=== PATIENT | male | born 1970 | race Caucasian/White ===

== ENCOUNTER 2017-01-14 21:12 | Emergency (ER) | payer MEDICAID ==
[~2017-01-14] VITALS: Ht 165.1 cm; Wt 81.6 kg
[2017-01-14 22:53] LABS: Basophils # (auto) 0 uL; Basophils % (auto) 0.2 % (0.0-2.0); CONDITION Y; DEFINITIVE SEE PRINTOUT; Eosinophils # (auto) 0.1 uL; Eosinophils % (auto) 1.2 % (0.0-7.0); Hematocrit 45.9 % (41.0-53.0); Hemoglobin 15.7 g/dL (13.5-17.5); Lymphocytes # (auto) 1.5 uL; Lymphocytes % (auto) 12.8 % (10.0-50.0); Mean Corpuscular Hemoglobin 31.3 pg (28.0-32.0); Mean Corpuscular Hgb Conc. 34.2 g/dL (32.0-36.0); Mean Corpuscular Volume 91.6 fL (80.0-100.0); Mean Platelet Volume 8.4 fL (7.4-10.4); Monocytes # (auto) 1.9 uL; Monocytes % (auto) 15.6 % (0.0-12.0); Neutrophils # (auto) 8.4 uL; Neutrophils % (auto) 70.2 % (37.0-80.0); Platelet Count (auto) 276 10^3/uL (140-450); Red Cell Distribution Width 12.8 % (11.6-16.0); SUSPECT SEE PRINTOUT; White Blood Cell 11.9 10^3/uL (4.4-10.8)
[2017-01-14 22:59] LABS: Urine Blood 1+ /uL (Negative); Urine Glucose Normal (Normal); Urine Ketone Negative (Negative); Urine Mucus FEW (None Seen); Urine Nitrite POSITIVE (Negative); Urine RBC 8 /hpf (0 - 3); Urine Squamous Epithelial Cell FEW /hpf (<5); Urine WBC Clumps PRESENT /hpf (None Seen)
[2017-01-14 23:00] LABS: Albumin 3.1 g/dL (3.4-5.0); Calcium 8.4 mg/dL (8.5-10.1); Potassium 4.5 mmol/L (3.5-5.1)
[2017-01-14 23:00] LABS: Urine Color Orange (Yellow)
[2017-01-14 23:03] LABS: BUN/Creatinine Ratio 8.5
[2017-01-14 23:06] LABS: Bilirubin, Total 0.9 mg/dL (0.2-1.0); Total Protein 7.2 g/dL (6.4-8.2)
[2017-01-14 23:06] LABS: Urine Bilirubin 2+ (Negative)
[2017-01-14 23:26] LABS: Platelet Estimate Adequate
[2017-01-15] MEDS ORDERED: KETOROLAC TROMETH 30 MG/ML 1ML VIAL IV ONE
[2017-01-15] MEDS ORDERED: SODIUM CHLORIDE 0.9% 1,000 ML IV ONE
[2017-01-15] MEDS ORDERED: cefTRIAXone 1GM/50ML D5W 50 ML IV ONE
[2017-01-15 02:00] VITALS: BP 140/91
== END 2017-01-15 02:10 | disposition home or self-care (01) ==
LOC: ER 21:19
DX: N39.0 Urinary tract infection, site not specified (principal); F17.210 Nicotine dependence, cigarettes, uncomplicated; F15.10 Other stimulant abuse, uncomplicated; I10 Essential (primary) hypertension
CPT/HCPCS: 36415; 74176; 80053; 81001; 85025; 96365; 96375; 99285; J0696; J1885; J7030

== ENCOUNTER 2018-11-07 21:30 | Emergency (ER) | payer MEDICAID ==
[~2018-11-07] VITALS: Ht 165.1 cm; Wt 81.6 kg
[2018-11-07] MEDS ORDERED: cloNIDine HCL 0.1 MG TAB PO ONE ×2 (22:00→23:45)
[2018-11-07] MEDS ORDERED: TETANUS-DIPTH-ACEL PERTUSSIS 0.5ML SYRG IM ONE (23:30)
[2018-11-07] MEDS ORDERED: IBUPROFEN 800 MG TAB PO ONE (23:45)
[2018-11-07 23:57] VITALS: BP 139/95
== END 2018-11-08 00:09 | disposition home or self-care (01) ==
LOC: ER 21:32
DX: T20.26XA Burn of second degree of forehead and cheek, initial encounter (principal); T31.0 Burns involving less than 10% of body surface; I16.0 Hypertensive urgency; T59.891A Toxic effect of other specified gases, fumes and vapors, accidental (unintentional), initial encounter; R51 Headache; F17.210 Nicotine dependence, cigarettes, uncomplicated; Z91.19 Patient's noncompliance with other medical treatment and regimen; Y92.89 Other specified places as the place of occurrence of the external cause
CPT/HCPCS: 36600; 70450; 70486; 71045; 82805; 90471; 90715